=== PATIENT | female | born 1960 | race Caucasian/White ===

== ENCOUNTER → 2019-09-22 11:12 | Outpatient (CLI) | payer OTHER, SELFPAY ==
--- NOTE | 2019-09-22 11:31 | MR_ITS ---
PROCEDURE: MR CERVICAL SPINE WO/W CON CLINICAL INDICATION: neck arm pain HX OF 2 CERVICAL SURGERIES. LAST SURGERY 2007. RT ARM PAIN. TINGLING IN RT HAND. CANNOT FULLY TURN HEAD TO THE RT. 23ML PROHANCE GIVEN. LOT: [id number] EXP: FEB 2022 BUN: 19 CRE: 0.9 GFR: 64 COMPARISON: No exams were available for comparison TECHNIQUE: Standard multiplanar multiecho sequences are performed without contrast. 3-D MIP and myelographic images are also rendered and reviewed FINDINGS: There are no previous exams available for comparison. There is reversal of the cervical lordosis and there is artifact from postsurgical changes. C2-C3: Unremarkable. C3-C4: Unremarkable. C4-C5: There is degenerative disc disease with bulging disc and mild kyphosis at the C4-C5 level. Uncovertebral hypertrophy is present with bilateral foraminal narrowing. There is borderline narrowing of the canal at 11 mm. C5-C6: Artifact from the previous surgery. No canal stenosis. C6-C7: Considerable artifact from the previous surgery. There is a small broad-based left paracentral area of decreased T1 and T2 signal at this region consistent with a disc protrusion/disc osteophyte complex. This is causing some impingement upon the anterior left aspect of the cord with minimal flattening of the cord and narrowing of the canal at 9 mm. This is on the left. C7-T1: Unremarkable. Mild disc bulge noted at T3-T4. IMPRESSION: 1. C4-C5: There is degenerative disc disease with bulging disc and mild kyphosis at the C4-C5 level. Uncovertebral hypertrophy is present with bilateral foraminal narrowing. There is borderline narrowing of the canal at 11 mm. 2. C5-C6: Artifact from the previous surgery. No canal stenosis. 3. C6-C7: Considerable artifact from the previous surgery. There is a small broad-based left paracentral area of decreased T1 and T2 signal at this region consistent with a disc protrusion/disc osteophyte complex. This is causing some impingement upon the anterior left aspect of the cord with minimal flattening of the cord and narrowing of the canal at 9 mm. This is on the left. Dictated by: Abel Pinedo MD 09/23/2019 10:16 Electronically signed by Abel Pinedo MD in [place] 09/23/2019 10:16
[2019-09-22 11:43] LABS: Chloride 109 mmol/L (98-107); Potassium 4.2 mmoL/L (3.5-5.1); Sodium 139 mmol/L (136-145)
[2019-09-22 11:46] LABS: Blood Urea Nitrogen 19 mg/dl (7-17); Estimated Glomerular Filt Rate 64 ml/min (>60); GFR (African American) 78 ML/MIN (>60)
[2019-09-22 11:47] LABS: Anion Gap 11.2 mEq/L (5-15); Calcium 9.7 mg/dl (8.4-10.2); Carbon Dioxide 23 mmol/L (22.0-30.0); Glucose 134 mg/dl (74-100)
== END ==
PROVIDERS: PCP Family Medicine; Visit Provider Family Medicine
DX: Z01.818 Encounter for other preprocedural examination (principal); G95.20 Unspecified cord compression; M79.601 Pain in right arm
CPT/HCPCS: 36415; 72156; 76376; 80048; A9576

== ENCOUNTER → 2020-06-26 15:18 | Outpatient (CLI) | payer OTHER, SELFPAY ==
[2020-06-26 15:27] LABS: Basophils # 0.1 K/mm3 (0-0.2); Basophils % 0.7 % (0.1-2.0); Eosinophils # 0.2 K/mm3 (0.0-0.4); Eosinophils % 1.9 % (0.1-12.0); Hematocrit 41.2 % (37.0-47.0); Hemoglobin 13.2 g/dL (12.2-16.2); Lymphocytes # 1.4 K/mm3 (0.7-4.5); Lymphocytes % 14.3 % (10-50); Mean Corpuscular HGB Conc 32.1 g/dL (31.8-35.4); Mean Corpuscular Hemoglobin 28.2 pg (27.0-31.2); Mean Corpuscular Volume 87.7 fl (81-99); Mean Platelet Volume 7.8 fl (7.4-10.4); Monocytes # 0.4 K/mm3 (0.1-1.0); Monocytes % 3.6 % (1.7-9.3); Neutrophils % 79.5 % (37.0-80.0); Platelet Count 483 K/mm3 (142-424); Red Cell Distribution Width 13.7 % (11.5-17.5)
[2020-06-26 15:35] LABS: Chloride 102 mmol/L (98-107)
[2020-06-26 15:36] LABS: Sodium 138 mmol/L (136-145)
[2020-06-26 15:38] LABS: Alanine Aminotransferase 23 U/L (12-78); Alkaline Phosphatase 194 U/L (38-126); Aspartate Amino Transferase 30 U/L (14-36); Bilirubin,Total 0.4 mg/dl (0.2-1.3); Blood Urea Nitrogen 15 mg/dl (7-17); Estimated Glomerular Filt Rate 85 ml/min (>60); GFR (African American) 103 ML/MIN (>60)
[2020-06-26 15:39] LABS: Albumin Level 4.3 g/dl (3.5-5.0); Albumin/Globulin Ratio 1.4 (1.1-1.8); Calcium 9.7 mg/dl (8.4-10.2); Carbon Dioxide 29 mmol/L (22.0-30.0); Chol/HDL Ratio 4.2 (1-3.5); Cholesterol 224 mg/dl (140-200); Glucose 186 mg/dl (74-100); HDL Cholesterol 53 mg/dl (40-60); Total Protein,Serum 7.3 g/dl (6.3-8.2); Triglycerides 352 mg/dl (30-150); VLDL Cholesterol 70 mg/dL (0-40)
[2020-06-26 15:50] LABS: Hemoglobin A1C 6.9 % (4.0-6.0)
[2020-06-26 15:51] LABS: Direct LDL Cholesterol 105.34 mg/dL (100-129)
[2020-06-26 15:56] LABS: T4 (Thyroxine) 16.3 ug/dl (5.53-11.0)
[2020-06-26 16:10] LABS: Thyroid Stimulating Hormone 0.02 uIU/mL (0.465-4.68)
== END ==
PROVIDERS: Visit Provider Family Medicine
DX: I10 Essential (primary) hypertension (principal); E03.9 Hypothyroidism, unspecified; E78.5 Hyperlipidemia, unspecified; E66.9 Obesity, unspecified; Z79.899 Other long term (current) drug therapy
CPT/HCPCS: 80053; 80061; 83036; 84436; 84443; 85025

== ENCOUNTER → 2021-04-02 13:46 | Outpatient (CLI) | payer OTHER, SELFPAY ==
[2021-04-02 14:34] LABS: Alanine Aminotransferase 28 U/L (12-78); Albumin Level 4.8 g/dl (3.5-5.0); Albumin/Globulin Ratio 1.7 (1.1-1.8); Alkaline Phosphatase 210 U/L (38-126); Anion Gap 15.7 mEq/L (5-15); Aspartate Amino Transferase 32 U/L (14-36); Bilirubin,Total 0.5 mg/dl (0.2-1.3); Blood Urea Nitrogen 15 mg/dl (7-17); Calcium 9.8 mg/dl (8.4-10.2); Carbon Dioxide 33 mmol/L (22.0-30.0); Chloride 91 mmol/L (98-107); Estimated Glomerular Filt Rate 64 ml/min (>60); GFR (African American) 77 ML/MIN (>60); Globulin 2.9 g/dL (1.3-3.2); Glucose 226 mg/dl (74-100); Potassium 4.7 mmoL/L (3.5-5.1); Sodium 135 mmol/L (136-145); Total Protein,Serum 7.7 g/dl (6.3-8.2)
[2021-04-02 14:43] LABS: Hemoglobin A1C 9.5 % (4.0-6.0)
[2021-04-02 15:04] LABS: Thyroid Stimulating Hormone 6.87 uIU/mL (0.465-4.68)
== END ==
PROVIDERS: Visit Provider Family Medicine
DX: E03.9 Hypothyroidism, unspecified (principal); R73.9 Hyperglycemia, unspecified; Z79.84 Long term (current) use of oral hypoglycemic drugs
CPT/HCPCS: 80053; 83036; 84443

== ENCOUNTER → 2021-12-10 15:41 | Outpatient (CLI) | payer OTHER, SELFPAY ==
[2021-12-10 16:38] LABS: Chloride 99 mmol/L (98-107); Sodium 140 mmol/L (136-145)
[2021-12-10 16:41] LABS: Alanine Aminotransferase 23 U/L (12-78); Albumin/Globulin Ratio 1.4 (1.1-1.8); Alkaline Phosphatase 207 U/L (38-126); Aspartate Amino Transferase 29 U/L (14-36); Bilirubin,Total 0.2 mg/dl (0.2-1.3); Blood Urea Nitrogen 10 mg/dl (7-17); Calcium 9.2 mg/dl (8.4-10.2); Carbon Dioxide 27 mmol/L (22.0-30.0); Estimated Glomerular Filt Rate 85 ml/min (>60); GFR (African American) 103 ML/MIN (>60); Globulin 2.8 g/dL (1.3-3.2); Glucose 98 mg/dl (74-100); Total Protein,Serum 6.8 g/dl (6.3-8.2)
[2021-12-10 18:17] LABS: Hemoglobin A1C 6.5 % (4.0-6.0)
== END ==
PROVIDERS: PCP Family Medicine; Visit Provider Family Medicine
DX: E11.9 Type 2 diabetes mellitus without complications (principal); Z79.4 Long term (current) use of insulin
CPT/HCPCS: 80053; 83036

== ENCOUNTER → 2022-02-04 07:38 | Outpatient (CLI) | payer OTHER, SELFPAY ==
--- NOTE | 2022-02-04 09:33 | HMH.ITSHM ---
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 []PAROXETINE PREDNISONE PANTOPRAZOLE NITRO METOPROLOL METFORMIN LOSARTAN LEVOTHYROXINE INSULIN HYDROCODONE HYDRALAZINE GABAPENTIN ATORVASTATIN ALBUTEROL
== END ==
PROVIDERS: PCP Family Medicine; Visit Provider Physician Assistant
DX: I20.8 Other forms of angina pectoris (principal); E11.9 Type 2 diabetes mellitus without complications; E78.5 Hyperlipidemia, unspecified; I10 Essential (primary) hypertension
CPT/HCPCS: 78452; 93017; 93306; A9502; J2785

== ENCOUNTER → 2022-07-01 13:42 | Outpatient (CLI) | payer OTHER, SELFPAY ==
[2022-07-01 13:36] LABS: Basophils % 0.4 % (0.1-2.0); Eosinophils # 0.2 K/mm3 (0.0-0.4); Eosinophils % 1.7 % (0.1-12.0); Hematocrit 38.1 % (37.0-47.0); Hemoglobin 12.2 g/dL (12.2-16.2); Lymphocytes # 1.5 K/mm3 (0.7-4.5); Lymphocytes % 14.2 % (10-50); Mean Corpuscular Hemoglobin 26.1 pg (27.0-31.2); Mean Corpuscular Volume 81.8 fl (81-99); Mean Platelet Volume 8.1 fl (7.4-10.4); Monocytes # 0.5 K/mm3 (0.1-1.0); Monocytes % 4.5 % (1.7-9.3); Neutrophils # 8.1 K/mm3 (1.8-7.8); Neutrophils % 79.2 % (37.0-80.0); Platelet Count 649 K/mm3 (142-424); Red Blood Count 4.66 M/mm3 (4.20-5.40); Red Cell Distribution Width 15.6 % (11.5-17.5); White Blood Count 10.2 K/mm3 (4.8-10.8)
[2022-07-01 13:42] LABS: Chloride 99 mmol/L (98-107); Potassium 4.8 mmoL/L (3.5-5.1); Sodium 140 mmol/L (136-145)
[2022-07-01 13:44] LABS: Alanine Aminotransferase 21 U/L (12-78); Anion Gap 16.8 mEq/L (5-15); Aspartate Amino Transferase 28 U/L (14-36); Blood Urea Nitrogen 11 mg/dl (7-17); Carbon Dioxide 29 mmol/L (22.0-30.0); Estimated Glomerular Filt Rate 101 ml/min (>60); GFR (African American) 123 ML/MIN (>60)
[2022-07-01 13:45] LABS: Albumin Level 4.2 g/dl (3.5-5.0); Albumin/Globulin Ratio 1.5 (1.1-1.8); Alkaline Phosphatase 181 U/L (38-126); Bilirubin,Total 0.4 mg/dl (0.2-1.3); Calcium 9.4 mg/dl (8.4-10.2); Chol/HDL Ratio 3.1 (1-3.5); Cholesterol 138 mg/dl (140-200); Globulin 2.8 g/dL (1.3-3.2); Glucose 138 mg/dl (74-100); HDL Cholesterol 45 mg/dl (40-60); Triglycerides 196 mg/dl (30-150); VLDL Cholesterol 39 mg/dL (0-40)
[2022-07-01 14:32] LABS: Thyroid Stimulating Hormone < 0.02 uIU/mL (0.465-4.68)
[2022-07-01 15:13] LABS: Hemoglobin A1C 9.8 % (4.0-6.0)
== END ==
PROVIDERS: PCP Family Medicine; Visit Provider Family Medicine
DX: E03.9 Hypothyroidism, unspecified (principal); E11.9 Type 2 diabetes mellitus without complications; Z79.4 Long term (current) use of insulin
CPT/HCPCS: 80053; 80061; 83036; 84443; 85025

== ENCOUNTER → 2022-07-01 14:32 | Outpatient (CLI) | payer OTHER, SELFPAY | PROVIDERS: PCP Family Medicine; Visit Provider Family Medicine | DX: E03.9 Hypothyroidism, unspecified (principal) ==